=== PATIENT | female | born 1985 | race Caucasian/White ===

== ENCOUNTER 2024-02-12 16:10 | Outpatient (CLI) | payer OTHER, SELFPAY ==
[2024-02-12 16:27] LABS: Hemoglobin 13.7 g/dL (12.0-15.0); Mean Corpuscular HGB Conc 32.6 g/dl (32-36); Mean Corpuscular Hemoglobin 27.9 pg (26-34); Mean Corpuscular Volume 85.5 fl (80-100); Mean Platelet Volume 9.7 fl (7.4-10.4); Platelet Count Result 357 k/mm3 (150-375); Red Blood Count 4.91 M/mm3 (4.2-5.4); Red Cell Distribution Width 13.1 % (11.5-14.5); White Blood Count 10.7 K/mm3 (4.5-10.0)
== END 2024-02-12 16:11 | disposition home or self-care (01) ==
LOC: ANHLAB 16:14
PROVIDERS: Visit Provider Obstetrics & Gynecology
DX: N92.6 Irregular menstruation, unspecified (principal)
CPT/HCPCS: 36415; 85027

== ENCOUNTER 2024-02-25 00:28 | Day surgery (SDC) | payer OTHER, SELFPAY ==
--- NOTE | 2024-02-12 15:32 | SUR.PREOP ---
Report to the Outpatient Waiting Room, entrance under the green pavilion located off [facility], at time _0730_ on date _02/25/2024_. Planned Procedure Time: _0930_.? Time changes happen often and if your time is changed the preop area will call you the afternoon before. - You and your visitor will be asked to self-screen and do not enter if you have any COVID symptoms. Please call surgeon if you need to reschedule. - A mask is optional within the hospital at this time. Patients may have clear liquids (water, carbonated beverages, clear teas, apple juice) until 3 hours prior to surgery (0630) with a maximum of 20 ounces. - No food from midnight until time of surgery and no smoking - Infants may have breast milk until 4 hours before surgery, formula 6 hours prior to surgery. - Children will be allowed to drink immediately following surgery.? If applicable, please bring a bottle or sippy cup to assist with drinking. Juice, water, soda, and popsicles are readily available.? For infants on formula, please bring formula the day of surgery.? Pacifiers are allowed. Take only the following medications with a SIP of water on the morning of surgery: _N/A_ DO NOT STOP ANY OF YOUR OTHER PRESCRIPTION MEDICATIONS PRIOR TO SURGERY EXCEPT THE FOLLOWING Medications to discontinue per physician __NA_ Date to take last dose_NA_ Please no make-up, nail turkish, hairspray, perfume, deodorant, or body powder the day of surgery.? No jewelry (including any body piercings) or valuables the day of surgery, leave them at home.? Please take a shower or bath the night before, or the morning of, surgery with an antibacterial soap.? Wear comfortable, loose fitting clothing.? Children are encouraged to wear pajamas. - Jewelry must be removed prior to entering the operating room.? Rings and piercings that are not removed may be cut off. - The hospital will not accept responsibility for valuables.? - Please leave all valuables, including medications, at home the day of surgery. If you are going home after surgery, a licensed jinrikisha driver must drive you home.? - NO public transportation without another adult if you receive anesthesia. - We recommend that an adult stay with you for 24 hours following discharge. - We also recommend that you do not drive, make important decision, drink alcoholic beverages, or take any drugs that were not prescribed by your health care provider for at least 24 hours after your discharge time. For Pediatric surgeries, we recommend two adults accompany the child home. Follow any additional instructions given to you from your surgeon. Telephone instructions given to _CHILANGO SAUL_and asked if any additional questions and then verbalized understanding. Patient advised to call surgeon office or pre surgery nurse liaison [phone] if any additional questions.
[2024-02-12 15:52] VITALS: BMI 29.9
[2024-02-25 07:06] VITALS: BP 111/72; PULSE 72; TEMP 37.1; O2SAT 99; BMI 31.0
[2024-02-25] MEDS: LACTATED RINGERS 1,000 ML 30 ML IV CONT (07:09)
[2024-02-25] MEDS: ACETAMINOPHEN 500 MG TABLET 1000 MG PO (07:09)
[2024-02-25 07:10] LABS: BEDSIDEPREGUCG Negative (Negative)
--- NOTE | 2024-02-25 07:36 | WPDHPUPDATE1 ---
History and Physical Update Update Date/Time: 02/25/24 07:36 After initial visit ultrasound was performed. Ultrasound confirms small fibroids x3. Also noted is an endometrial thickness of 9 1mm. Also a hyperechoic lesion and fluid in the endometrium as well. Therefore will proceed today with hysteroscopy removal lesion (likely polypectomy) prior to any more definitive surgical intervention for her symptomatology. Plan: 1. Hysteroscopy with uterine curettings/polypectomy/myomectomy. History and Physical has been reviewed, including an updated exam of the patient. There are NO changes in the patient's condition. Risks, benefits, and alternatives have been discussed and questions answered. Patient agrees to proceed with procedure.
--- NOTE | 2024-02-25 07:37 | WPDANESEPPF ---
Anes - Initial Pre Proc Eval Procedure: Operation Date: 02/25/24 08:30 Proposed Procedures p Hysteroscopy Dilation and Curettage with Polypectomy and Myomectomy - Madi Nunes MD Date/Time: 02/25/24 07:37 Surgeon: Madi Nunes MD Pre Op Diagnosis: menometrorrhagia Patient Data Age: 38 Gender: F Height: 1.68 m Weight: 87.3 kg Last Vital Signs Temp 37.1 C 02/25/24 07:06 Pulse 72 02/25/24 07:06 BP 111/72 02/25/24 07:06 Pulse Ox 99 02/25/24 07:06 O2 Del Method Room Air 02/25/24 07:06 Allergies Allergy/AdvReac Type Severity Reaction Status Date / Time chlorhexidine Allergy Hives Verified 02/12/24 15:45 naproxen AdvReac Nausea and Verified 02/12/24 15:45 Vomiting Home Medications Medication Instructions Recorded Confirmed Type No Home Medications 02/02/24 02/12/24 History Laboratory Tests 02/25/24 07:06 POC Urine HCG, Qual Negative (Negative) Patient hx anesthesia problems: none Family hx anesthesia problems: none Results Review: All pre-operative results and documents have been reviewed as part of the pre-operative evaluation. [facility] Past Medical History Medical History (Updated 02/25/24 @ 07:37 by Bradley Mcadams MD) Mild acid reflux Obesity Surgical History Surgical History (Updated 02/02/24 @ 08:05 by Elizabeth Silva [facility]) H/O tubal ligation (03/02/13) History of tonsillectomy (~2000) Hx of cholecystectomy (~2021) Family History Family History Mother Diabetes mellitus Grandparent Lung cancer paternal grandfather H/O ovarian cancer maternal grandmother Social History Social History Smoking status: Never smoker Second hand tobacco smoke exposure: No Alcohol intake: current Alcohol use details: ONCE A MONTH Substance use: never Substance use type: does not use Do You Feel Safe in your Home?: Yes Current Housing: Decline to Answer Concerned About Future Housing: Decline to Answer Difficulty Paying Gas/Electric Bills: Decline to Answer Difficulty Paying for Meds: Decline to Answer Currently Unemployed: Decline to Answer Education: Decline to Answer Difficulty w/ Childcare or Family Care: Decline to Answer Living arrangements: with family Additional living arrangements comments: with and children Occupation/Education: occupation 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 Gender identity (if verbalized by the patient): Female Sexual Orientation (if Verbalized by the Patient): Straight or Heterosexual Spiritual care concerns: No Anes - Eval Final PreProcedure Day of Procedure 02/25/24 07:37 Patient weight: obese Heart: regular rate and rhythm Lungs: clear to auscultation Airway: Mallampati scale class II Neurological: alert and oriented Last oral intake: >/= 8 hours ASA classification: II Emergent: no Anesthetic plan: proceed Anesthesia type and monitoring: general GIVS and standard monitoring Results Review: All pre-operative results and documents have been reviewed as part of the pre-operative evaluation. Informed Consent: The patient's anesthetic plan and its attendant risks and benefits were discussed with the patient/family/POA. Questions were solicited and answers provided to the satisfaction of the patient/family/POA.
--- NOTE | 2024-02-25 09:01 | W.PM.PROC2 ---
Procedure Note - Detailed Date of Procedure 02/25/24 Pre-op Diagnosis 1. Menometrorrhagia 2. Endometrial lesion 3. Uterine fibroids Post-op Diagnosis Same Procedure Performed 1. Hysteroscopy with uterine curettings/shavings Surgeon Madi Nunes MD Anesthesia MAC Findings Endometrial polyp with thickened endometrium Description of Procedure Patient prepped and draped usual manner for this procedure. Cervix was dilated to allow the hysteroscope to be placed. Once this was done polyp was noted and using the shaving instrument the endometrial polyp as well as thorough sampling of the endometrial cavity was undertaken. There was no bleeding and the patient was sent to recovery room in stable condition. Estimated Blood Loss 10 Drains No Packing No Pathology Yes Complications No immediate complications Condition Stable Disposition PACU [facility] Billing Surgery - Charge Forward: Surgery Billing
[2024-02-25 09:06] VITALS: BP 91/47; PULSE 80; RESP 12; O2SAT 98
[2024-02-25 09:30] VITALS: BP 108/63; PULSE 70; RESP 20
[2024-02-25 09:50] VITALS: BP 101/63; PULSE 53; RESP 20
== END 2024-02-25 09:55 | disposition home or self-care (01) ==
PROVIDERS: Visit Provider Obstetrics & Gynecology
PROC: 0U5B8ZZ Destruction of Endometrium, Via Natural or Artificial Opening Endoscopic (ICD-10-PCS; CPT 58563; principal; 2024-02-25 08:30)
DX: R93.89 Abnormal findings on diagnostic imaging of other specified body structures (principal); N84.0 Polyp of corpus uteri; K21.9 Gastro-esophageal reflux disease without esophagitis; E66.9 Obesity, unspecified; Z68.31 Body mass index [BMI] 31.0-31.9, adult; G89.18 Other acute postprocedural pain; Z98.890 Other specified postprocedural states; Z98.51 Tubal ligation status; Z90.49 Acquired absence of other specified parts of digestive tract; Z80.1 Family history of malignant neoplasm of trachea, bronchus and lung; Z80.41 Family history of malignant neoplasm of ovary
CPT/HCPCS: 58558; 88305; A9270; J2003; J2250; J2405; J2704; J3010; J7030; J7120

== ENCOUNTER 2024-04-27 17:12 | Outpatient (CLI) | payer OTHER, SELFPAY ==
[2024-04-27 18:06] LABS: Hematocrit 42.5 % (37.0-47.0); Hemoglobin 14.2 g/dL (12.0-15.0); Mean Corpuscular HGB Conc 33.4 g/dl (32-36); Mean Corpuscular Volume 83.7 fl (80-100); Mean Platelet Volume 9.9 fl (7.4-10.4); Platelet Count Result 383 k/mm3 (150-375); Red Blood Count 5.08 M/mm3 (4.2-5.4); Red Cell Distribution Width 13.3 % (11.5-14.5); White Blood Count 8.6 K/mm3 (4.5-10.0)
== END 2024-04-27 17:13 | disposition home or self-care (01) ==
LOC: ANHLAB 17:13
PROVIDERS: Visit Provider Obstetrics & Gynecology
DX: N92.0 Excessive and frequent menstruation with regular cycle (principal)
CPT/HCPCS: 36415; 85027; 86850; 86900; 86901

== ENCOUNTER 2024-05-05 01:25 | Day surgery (SDC) | payer OTHER, SELFPAY ==
--- NOTE | 2024-04-26 15:45 | PC.NURSE ---
Report to the Outpatient Waiting Room, entrance under the green pavilion located off [facility], at time 0600 on date 05/05/24. Planned Procedure Time: 0730.? Time changes happen often and if your time is changed the preop area will call you the afternoon before. - You and your visitor will be asked to self-screen and do not enter if you have any COVID symptoms. Please call surgeon if you need to reschedule. - A mask is optional within the hospital at this time. Patients may have clear liquids (water, carbonated beverages, clear teas, apple juice) until 3 hours prior to surgery with a maximum of 20 ounces. 0430 - No food from midnight until time of surgery and no smoking. This includes no chewing gum, candy or mints. - Infants may have breast milk until 4 hours before surgery, formula 6 hours prior to surgery. - Children will be allowed to drink immediately following surgery.? If applicable, please bring a bottle or sippy cup to assist with drinking. Juice, water, soda, and popsicles are readily available.? For infants on formula, please bring formula the day of surgery.? Pacifiers are allowed. Take only the following medications with a SIP of water on the morning of surgery: N/A DO NOT STOP ANY OF YOUR OTHER PRESCRIPTION MEDICATIONS PRIOR TO SURGERY EXCEPT THE FOLLOWING Medications to discontinue per physician N/A Date to take last dose N/A Please no make-up, nail yakut, hairspray, perfume, deodorant, or body powder the day of surgery.? No jewelry (including any body piercings) or valuables the day of surgery, leave them at home.? Please take a shower or bath the night before, or the morning of, surgery with an antibacterial soap.? Wear comfortable, loose fitting clothing.? Children are encouraged to wear pajamas. - Jewelry must be removed prior to entering the operating room.? Rings and piercings that are not removed may be cut off. - The hospital will not accept responsibility for valuables.? - Please leave all valuables, including medications, at home the day of surgery. If you are going home after surgery, a licensed motor bus driver must drive you home.? - NO public transportation without another adult if you receive anesthesia. - We recommend that an adult stay with you for 24 hours following discharge. - We also recommend that you do not drive, make important decision, drink alcoholic beverages, or take any drugs that were not prescribed by your health care provider for at least 24 hours after your discharge time. For Pediatric surgeries, we recommend two adults accompany the child home. Follow any additional instructions given to you from your surgeon. Telephone instructions given to Patient- Renee Manning and asked if any additional questions and then verbalized understanding. Patient advised to call surgeon office or pre surgery nurse liaison [phone] if any additional questions.
[2024-04-26 15:52] VITALS: BMI 31.5
--- NOTE | 2024-05-04 13:54 | PM.IMHP ---
H&P: HPI History of Present Illness Date/Time: 05/04/24 13:54 38-year-old female presents for definitive therapy due to complaints of menstrual cycles lasting 5-7 days with 4-5 days heavy with clots and cramps, as well as needed change tampon least hourly during this time also has a longstanding history of abdominal /pelvic pain which has been worsened during this time as well. ultrasound performed which showed mildly enlarged uterus with multiple fibroids. underwent hysteroscopy D&C after ultrasound which revealed benign tissue and endometrial polyp. Bleeding has continued and patient presents for hysterectomy. Chief Complaint: Symptomatic fibroid uterus Review of Systems Review of Systems: All systems reviewed & are unremarkable except as noted in HPI and below PMFSH Past Medical History Medical History Obesity Mild acid reflux Surgical History Surgical History History of hysteroscopy (02/25/24) Hysteroscopy with uterine curettings/shavings Hx of cholecystectomy (~2021) History of tonsillectomy (~2000) H/O tubal ligation (03/02/13) Family History Family History Mother Diabetes mellitus Grandparent Lung cancer paternal grandfather H/O ovarian cancer maternal grandmother Social History Social History Smoking status: Never smoker Second hand tobacco smoke exposure: No Alcohol intake: current Alcohol use details: ONCE A MONTH Substance use: never Substance use type: does not use Do You Feel Safe in your Home?: Yes Current Housing: Decline to Answer Concerned About Future Housing: Decline to Answer Difficulty Paying Gas/Electric Bills: Decline to Answer Difficulty Paying for Meds: Decline to Answer Currently Unemployed: Decline to Answer Education: Decline to Answer Difficulty w/ Childcare or Family Care: Decline to Answer Living arrangements: with family Additional living arrangements comments: with and children Occupation/Education: occupation 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 Gender identity (if verbalized by the patient): Female Sexual Orientation (if Verbalized by the Patient): Straight or Heterosexual Spiritual care concerns: No Meds Home Medications and Allergies Home Medications ?Medication ?Instructions ?Recorded ?Confirmed ?Type No Home Medications 04/26/24 04/26/24 History Allergies Allergy/AdvReac Type Severity Reaction Status Date / Time chlorhexidine Allergy Hives Verified 04/26/24 15:35 naproxen AdvReac Nausea and Verified 04/26/24 15:35 Vomiting Exam Const: General: cooperative and healthy appearing Resp: Effort & Inspection: normal respiratory effort Auscultation: clear to auscultation bilaterally Cardio: Rate: regular rate Rhythm: regular rhythm GI: Inspection: normal to inspection Auscultation: normal bowel sounds : External Female Exam: normal external appearance Speculum Exam - Vagina: normal appearance of the vagina Speculum Exam - Cervix: normal appearance of the cervix Bimanual exam- vagina & uterus: enlarged ( Ten 12 week size) Bimanual Exam- Adnexa, other: normal adnexae Assessment and Plan Assessment and plan (1) Menorrhagia: Code(s): N92.0 - Excessive and frequent menstruation with regular cycle Status: Acute (2) Dysmenorrhea: Code(s): N94.6 - Dysmenorrhea, unspecified Status: Acute (3) Enlarged uterus: Code(s): N85.2 - Hypertrophy of uterus Status: Acute Plan proceed with a robotic assisted laparoscopic hysterectomy with salpingectomy//ovarian preservation.
[2024-05-05] VITALS (9 sets, daily range): BP systolic 93–140; BP diastolic 52–93; PULSE 57–88; RESP 12–20; TEMP 36.3–36.9; O2SAT 96–100
--- NOTE | 2024-05-05 06:43 | P.PNAN_ITS ---
Anes - Initial Pre Proc Eval Procedure: Operation Date: 05/05/24 07:30 Proposed Procedures p Robotic Assisted Total Laparoscopic Hysterectomy with Bilateral Salpingectomy - Madi Nunes MD Date/Time: 05/05/24 06:43 Surgeon: Madi Nunes MD Pre Op Diagnosis: menorrhagia Patient Data Age: 38 Gender: F Height: 1.68 m Weight: 88.6 kg Allergies Allergy/AdvReac Type Severity Reaction Status Date / Time chlorhexidine Allergy Hives Verified 04/26/24 15:35 naproxen AdvReac Nausea and Verified 04/26/24 15:35 Vomiting Home Medications ?Medication ?Instructions ?Recorded ?Confirmed ?Type No Home Medications 04/26/24 04/26/24 History Patient hx anesthesia problems: none Family hx anesthesia problems: none Results Review: All pre-operative results and documents have been reviewed as part of the pre- operative evaluation. [facility] Past Medical History Medical History Obesity Mild acid reflux Surgical History Surgical History History of hysteroscopy (02/25/24) Hysteroscopy with uterine curettings/shavings Hx of cholecystectomy (~2021) History of tonsillectomy (~2000) H/O tubal ligation (03/02/13) Family History Family History Mother Diabetes mellitus Grandparent Lung cancer paternal grandfather H/O ovarian cancer maternal grandmother Social History Social History Smoking status: Never smoker Second hand tobacco smoke exposure: No Alcohol intake: current Alcohol use details: ONCE A MONTH Substance use: never Substance use type: does not use Do You Feel Safe in your Home?: Yes Current Housing: Decline to Answer Concerned About Future Housing: Decline to Answer Difficulty Paying Gas/Electric Bills: Decline to Answer Difficulty Paying for Meds: Decline to Answer Currently Unemployed: Decline to Answer Education: Decline to Answer Difficulty w/ Childcare or Family Care: Decline to Answer Living arrangements: with family Additional living arrangements comments: with and children Occupation/Education: occupation 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 Gender identity (if verbalized by the patient): Female Sexual Orientation (if Verbalized by the Patient): Straight or Heterosexual Spiritual care concerns: No Anes - Eval Final PreProcedure Day of Procedure 05/05/24 06:43 Patient weight: obese Heart: regular rate and rhythm Lungs: clear to auscultation Airway: Mallampati scale class II Neurological: alert and oriented Last oral intake: >/= 8 hours ASA classification: II Emergent: no Anesthetic plan: proceed Anesthesia type and monitoring: general GIVS and standard monitoring Results Review: All pre-operative results and documents have been reviewed as part of the pre- operative evaluation. Informed Consent: The patient's anesthetic plan and its attendant risks and benefits were discussed with the patient/family/POA. Questions were solicited and answers provided to the satisfaction of the patient/family/POA.
[2024-05-05] MEDS: ACETAMINOPHEN 500 MG TABLET 1000 MG PO ×2 (06:45→17:44)
[2024-05-05] MEDS: KETOROLAC 15 MG/ML VIAL (*BKC) IV PUSH (06:45)
[2024-05-05] MEDS: LACTATED RINGERS 1,000 ML 30 ML IV CONT ×2 (07:00→09:12)
[2024-05-05] MEDS: SCOPOLAMINE 1 MG PATCH 1 PATCH TRANSDERM (07:00)
[2024-05-05 07:01] LABS: BEDSIDEPREGUCG Negative (Negative)
--- NOTE | 2024-05-05 07:22 | WPDHPUPDATE1 ---
History and Physical Update Update Date/Time: 05/05/24 07:22 History and Physical has been reviewed, including an updated exam of the patient. There are NO changes in the patient's condition. Risks, benefits, and alternatives have been discussed and questions answered. Patient agrees to proceed with procedure.
[2024-05-05] MEDS: ceFAZolin 2 GM/D5W 50 ML 2 GM/50 ML BAG IVPB (07:25)
--- NOTE | 2024-05-05 08:58 | W.PM.PROC2 ---
Procedure Note - Detailed Date of Procedure 05/05/24 Pre-op Diagnosis 1. Menometrorrhagia 2. Dysmenorrhea 3. enlarged uterus Post-op Diagnosis Same Procedure Performed Robotic assisted total laparoscopic hysterectomy with bilateral salpingectomy Removal of Filshie clips Surgeon Madi Nunes MD Anesthesia General Findings 1. Enlarged bulky uterus 2. Ovaries without abnormality 3. Filshie clips in posterior cul-de-sac Description of Procedure Patient prepped and draped usual manner for this procedure. Cervical instruments were placed for mobility throughout the case. Abdominal trocar sites were marked and placed under direct visualization. Trocars were then attached to the [employer] system and instruments were placed without difficulty. You findings were noted as above in the mesial salpinx was cauterized and cut bilaterally and tubes removed without difficulty. Filshie clips were noted at this point the left posterior cul-de-sac and removed without difficulty. Round ligaments cauterized and cold cut bilaterally and bladder flap was developed difficulty. Posterior leaf the broad ligament was also incised to skeletonize the uterine vessels. Prior to this the uterine ovarian ligaments were cauterized and cut to drop the ovaries out of the operative field. Uterine vessels were then cauterized and cut bilaterally without difficulty and vascularity to the uterus was removed at this point. Anterior cul-de-sac incision was made and this was carried circumferentially to separate the cervix from the vagina, and the uterus was delivered into the vagina. Vaginal cuff was then closed using V lock suture from the right angle to the midline and then from the left angle past the midline with good approximation hemostasis noted. Irrigation was then undertaken with no bleeding noted. Hematoma was placed over all the raw edges empirically and at this point the procedure was considered terminated. Gas was allowed to escape, trocars removed, trocar sites were approximated using 4-0 Monocryl. Patient was then taken the recovery room in stable condition. Estimated Blood Loss 100 Drains No Packing No Pathology Yes Complications No immediate complications Condition Stable Disposition PACU [facility] Billing Surgery - Charge Forward: Surgery Billing
[2024-05-05] MEDS: fentaNYL CITRATE INJ (*CRX) 100 MCG/2 ML VIAL 25 MCG IV PUSH ×4 (09:30→09:52)
--- NOTE | 2024-05-05 10:43 | PC.NURSE ---
This patient, Renee Manning, was received from PACU via bed on 05/05/24 at 1018. Patient/family oriented to unit policies and routines.
[2024-05-05] MEDS: oxyCODONE HCL (*CRX) 5 MG TAB IR PO (10:54)
[2024-05-05] MEDS: ONDANSETRON INJ 4 MG/2 ML VIAL IV PUSH ×2 (10:54→17:45)
[2024-05-05] MEDS: DEXTROSE 5%/0.45% SOD CHL 1,000 ML 125 ML IV CONT (10:55)
[2024-05-05] MEDS: SIMETHICONE 80 MG TAB.CHEW PO ×2 (10:55→17:44)
[2024-05-05] MEDS: DOCUSATE SODIUM 100 MG CAPSULE PO (17:44)
[2024-05-05] MEDS: KETOROLAC 30 MG/ML VIAL (*BKC) IV PUSH (17:45)
[2024-05-06 00:45] VITALS: BP 102/64; PULSE 70; RESP 14; TEMP 36.8; O2SAT 100
[2024-05-06 05:40] VITALS: BP 101/64; PULSE 67; RESP 16; TEMP 36.7; O2SAT 100
[2024-05-06] MEDS: ACETAMINOPHEN 500 MG TABLET 1000 MG PO (05:53)
[2024-05-06] MEDS: IBUPROFEN 600 MG TABLET PO (05:54)
[2024-05-06 06:43] LABS: Basophils Percent Auto 0.2 % (0.2-1.2); Eosinophils Percent Auto 0.2 % (0-4.4); Hematocrit 36.2 % (37.0-47.0); Hemoglobin 11.6 g/dL (12.0-15.0); Immature Granulocyte Absolute 0.03 K/mm3 (0.00-0.031); Immature Granulocyte Percent A 0.2 % (0-0.5); Lymphocytes Absolute Auto 3.52 K/mm3 (0.9-3.2); Lymphocytes Percent Auto 28.4 % (18.3-44.2); Mean Corpuscular Hemoglobin 27.8 pg (26-34); Mean Corpuscular Volume 86.8 fl (80-100); Mean Platelet Volume 9.9 fl (7.4-10.4); Monocytes Absolute Auto 0.9 K/mm3 (0.1-0.6); Monocytes Percent Auto 7.1 % (2.6-8.5); Neutrophils Absolute Auto 7.9 K/mm3 (1.3-6.7); Neutrophils Percent Auto 63.9 % (45.5-73.1); Platelet Count Result 277 k/mm3 (150-375); Red Blood Count 4.17 M/mm3 (4.2-5.4); Red Cell Distribution Width 13.2 % (11.5-14.5); White Blood Count 12.4 K/mm3 (4.5-10.0)
[2024-05-06] MEDS: DOCUSATE SODIUM 100 MG CAPSULE PO (07:05)
[2024-05-06] MEDS: SIMETHICONE 80 MG TAB.CHEW PO (07:05)
[2024-05-06 07:35] VITALS: BP 106/52; PULSE 65; RESP 16; TEMP 36.8; O2SAT 100
== END 2024-05-06 10:09 | disposition home or self-care (01) ==
LOC: ANHSURGERY 05:50 → ANHOB2 18:09
PROVIDERS: Visit Provider Obstetrics & Gynecology
PROC: (CPT 58571; principal; 2024-05-05 07:30)
DX: N88.8 Other specified noninflammatory disorders of cervix uteri (principal); D25.1 Intramural leiomyoma of uterus; D26.1 Other benign neoplasm of corpus uteri; G89.18 Other acute postprocedural pain; K21.9 Gastro-esophageal reflux disease without esophagitis; E66.9 Obesity, unspecified; Z68.31 Body mass index [BMI] 31.0-31.9, adult; Z98.890 Other specified postprocedural states; Z90.49 Acquired absence of other specified parts of digestive tract; Z98.51 Tubal ligation status; Z80.1 Family history of malignant neoplasm of trachea, bronchus and lung; Z80.41 Family history of malignant neoplasm of ovary
CPT/HCPCS: 58571; S2900; 36415; 85025; 88307; 99199; A9270; J0690; J1100; J1171; J1885; J2003; J2250; J2405; J2704; J3010; J7120

== ENCOUNTER 2024-05-07 19:42 | Emergency (ER) | payer OTHER, SELFPAY ==
--- NOTE | ~2024-05-07 | CT_ITS ---
EXAMINATION: CT abdomen pelvis w con DATE: 05/07/2024 21:02 INDICATION: Postoperative abdominal pain TECHNIQUE: Computed tomography (CT) of the abdomen and pelvis was performed with 100 CC Omnipaque 350 intravenous contrast. Automated exposure control and iterative reconstruction technique were employe d. Exam dose: 718.70 mGy-cm total exam DLP. COMPARISON: None. FINDINGS: Right lower lobe calcified pulmonary granuloma. The lung bases are clear of infiltrate or c onsolidation. Normal heart size. No pericardial or pleural effusion. Status post cholecystectomy. No hepatic, splenic, pancreatic, adrenal or renal space-occupying mass l esion. No bile duct or pancreatic duct dilatation. No urinary tract calculus or hydroureteronephrosis. Normal caliber of the abdominal aorta. No intraperitoneal or retroperitoneal or pelvic mass lesion or adenopathy. Normal appendix. No bowel obstruction, bowel wall thickening or pneumatosis. 2.5 cm left ovarian cyst. There is minimal focal lower anterior ventral abdominal wall subcutaneous emphysema, mild free fluid in the lower pelvis and a small amount of intraperitoneal free air is demonstrated over the anterior aspect of the liver, which may be postoperative findings. There is no contrast material within the ur inary bladder, preventing assessment for possible bladder leak. Included skeletal structures are unremarkable. IMPRESSION: Mild fluid in the pelvic area and mild intraperitoneal free air, possibly postoperative findings If there is any concern for bladder leak, consider cystogram. Reviewed, dictated and finalized at [facility] Reviewed, dictated and finalized at [facility] IMPRESSION: Mild fluid in the pelvic area and mild intraperitoneal free air, p ossibly postoperative findings If there is any concern for bladder leak, consider cystogram.
[2024-05-07 19:51] VITALS: BP 129/69; PULSE 100; RESP 15; TEMP 36.6; O2SAT 98
[2024-05-07] MEDS: SODIUM CHLORIDE 0.9% IV 1,000 ML 999 ML IV CONT ×2 (20:29→20:50)
--- NOTE | 2024-05-07 20:32 | ED_ITS ---
HPI - General Adult General Chief complaint: Fever Stated complaint: fevers/ pain/ post hysterectomy Time Seen by Provider: 05/07/24 19:58 History of Present Illness HPI narrative: A 38-year-old female presents to the emergency department for evaluation for abdominal pain. Patient did have a hysterectomy done on Thursday. Patient states she has not had a bowel movement since before surgery. Patient is complaining of increased abdominal bloating and did have a fever at home. Patient is afebrile upon arrival to the emergency department. Patient is uncomfortable appearing. Hysterectomy was performed by Dr. Nunes Related Data Allergies Allergy/AdvReac Type Severity Reaction Status Date / Time chlorhexidine Allergy Hives Verified 05/07/24 19:43 naproxen AdvReac Nausea and Verified 05/07/24 19:43 Vomiting Review of Systems 2 Review of Systems: All systems reviewed & are unremarkable except as noted in HPI and below PMFSH Past Medical History Medical History Obesity Mild acid reflux Surgical History Surgical History History of hysteroscopy (02/25/24) Hysteroscopy with uterine curettings/shavings Hx of cholecystectomy (~2021) History of tonsillectomy (~2000) H/O tubal ligation (03/02/13) Family History Family History Mother Diabetes mellitus Grandparent Lung cancer paternal grandfather H/O ovarian cancer maternal grandmother Social History Social History Smoking status: Never smoker Second hand tobacco smoke exposure: No Alcohol intake: current Alcohol use details: ONCE A MONTH Substance use: never Substance use type: does not use Do You Feel Safe in your Home?: Yes Current Housing: Decline to Answer Concerned About Future Housing: Decline to Answer Difficulty Paying Gas/Electric Bills: Decline to Answer Difficulty Paying for Meds: Decline to Answer Currently Unemployed: Decline to Answer Education: Decline to Answer Difficulty w/ Childcare or Family Care: Decline to Answer Living arrangements: with family Additional living arrangements comments: with and children Occupation/Education: occupation 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 HEAD: normocephalic, atraumatic. EYES: PERRLA/EOMI, conjunctivae clear. NOSE: Normal no drainage EARS:TMS clear with good light reflex. THROAT: Pharynx clear, no exudate. NECK: Supple. No adenopathy, no masses. RESPIRATORY: Airway patent, respirations nonlabored. Clear to auscultation bilaterally, no rales, rhonchi, wheezing. CARDIOVASCULAR: Regular rate and rhythm without murmurs rubs or gallops. ABDOMINAL: Well-appearing surgical incisions, diffuse abdominal tenderness to palpation MUSCULOSKELETAL: Moves all extremities. Strength/ROM intact, No edema, No calf tenderness. NEURO: Alert. Cranial nerves II through XII intact. Grossly intact SKIN: Warm, dry. Normal Color Course Vital Signs Vital signs: Vital Signs Temperature 97.9 F 05/07/24 19:51 Pulse Rate 100 05/07/24 19:51 Respiratory Rate 15 05/07/24 19:51 Blood Pressure 129/69 05/07/24 19:51 Pulse Oximetry 98 05/07/24 19:51 Oxygen Delivery Room Air 05/07/24 19:51 Temperature 97.9 F 05/07/24 19:51 Pulse Rate 66 05/07/24 23:05 Respiratory Rate 15 05/07/24 23:05 Blood Pressure 114/86 05/07/24 23:05 Pulse Oximetry 100 05/07/24 23:05 Oxygen Delivery Room Air 05/07/24 19:51 Medical Decision Making [facility] Narrative Medical decision making narrative: 38-year-old female presents to the emergency department for evaluation for post op bloating and constipation. Patient is afebrile but does have a leukocytosis of 12.5 and a stable hemoglobin of 12.0. INR is 1.0. No acute abnormalities on the CMP UA shows no significant abnormalities CT scan did show some trace air and fluid in the abdomen which is expected for postop. Patient did feel improved with treatment. Patient family are updated on the plan for treatment at home and increase the MiraLax dosing. Questions concerns were addressed patient was well-appearing of discharged Differential Diagnosis Differential Diagnosis: Bowel perforation bowel obstruction, colitis, diverticulitis, bladder perforation, UTI Vital Signs Vital Signs: Vital Signs Temperature 97.9 F 05/07/24 19:51 Pulse Rate 100 05/07/24 19:51 Respiratory Rate 15 05/07/24 19:51 Blood Pressure 129/69 05/07/24 19:51 Pulse Oximetry 98 05/07/24 19:51 Oxygen Delivery Room Air 05/07/24 19:51 Temperature 97.9 F 05/07/24 19:51 Pulse Rate 66 05/07/24 23:05 Respiratory Rate 15 05/07/24 23:05 Blood Pressure 114/86 05/07/24 23:05 Pulse Oximetry 100 05/07/24 23:05 Oxygen Delivery Room Air 05/07/24 19:51 Lab Data Lab results reviewed: Yes I reviewed the patient's lab results. 05/07/24 20:28 05/07/24 20:28 Labs: Lab Results 05/07/24 Range/Units 20:28 WBC 12.5 H (4.5-10.0) K/mm3 RBC 4.35 (4.2-5.4) M/mm3 Hgb 12.0 (12.0-15.0) g/dL Hct 36.3 L (37.0-47.0) % MCV 83.4 (80-100) fl MCH 27.6 (26-34) pg MCHC 33.1 (32-36) g/dl RDW 12.9 (11.5-14.5) % Plt Count 318 (150-375) k/mm3 MPV 10.0 (7.4-10.4) fl Immature Gran % (Auto) 0.6 H (0-0.5) % Neut % (Auto) 72.1 (45.5-73.1) % Lymph % (Auto) 17.8 L (18.3-44.2) % [place] % (Auto) 8.1 (2.6-8.5) % Eos % (Auto) 1.1 (0-4.4) % Baso % (Auto) 0.3 (0.2-1.2) % Lymph # (Auto) 2.22 (0.9-3.2) K/mm3 [place] # (Auto) 1.0 H (0.1-0.6) K/mm3 Eos # (Auto) 0.1 (0-0.3) K/mm3 Baso # (Auto) 0.0 (0.0-0.1) K/mm3 Abs Immat Gran (auto) 0.07 H (0.00-0.031) K/mm3 Absolute Neuts (auto) 9.0 H (1.3-6.7) K/mm3 Absolute Nucleated RBC 0.000 (0.0-0.012) K/mm3 Nucleated RBC % 0.0 (0.0-0.2) % PT 14.0 (11.1-14.7) Seconds INR 1.0 APTT 28.3 (22.3-36.8) Seconds Sodium 134 L (137-145) mmol/L Potassium 3.4 (3.4-5.0) mmol/L Chloride 103 (98-107) mmol/L Carbon Dioxide 27 (22-30) mmol/L Anion Gap 4 (4-12) mmol/L BUN 4 L (7-17) mg/dL Creatinine 0.70 (0.7-1.0) mg/dL Estim Creat Clear Calc 106 ml/min Estimated GFR > 60 (59 - ) Glucose 115 H (65-110) mg/dL Lactic Acid 0.7 (0.7-2.0) mmol/L Calcium 8.4 (8.4-10.2) mg/dL Total Bilirubin 0.9 (0.2-1.3) mg/dL AST 30 (14-36) U/L ALT 32 (6-35) U/L Alkaline Phosphatase 58 (38-126) U/L Total Protein 7.0 (6.3-8.2) g/dL Albumin 3.6 (3.5-5.1) g/dL Lipase 29 (23-300) U/L Urine Color Yellow (Yellow) Urine Appearance Clear (Clear) Urine pH 7.0 (5.0-9.0) Ur Specific [place] 1.012 (1.001-1.035) Urine Protein Negative (Negative) mg/dL Urine Glucose (UA) Negative (Negative) mg/dL Urine Ketones 1+ H (Negative) mg/dL Ur Blood (Man) Non-hemolyzed trace H (Negative) Urine Nitrate Negative (Negative) Urine Bilirubin Negative (Negative) Urine Urobilinogen 2.0 H (<2.0) mg/dL Leukocyte Esterase Rfl Trace H (Negative) ALESSIO/UL Urine RBC 0-2 (0-2) /hpf Urine WBC 0-5 (0-3) /hpf Ur Squamous Epith Cells Few (Few) /hpf Urine Bacteria None seen /hpf Urine Casts 0-2 Imaging Data Radiologist's impression: Impressions Abdomen/Pelvis CT 05/07/24 21:09 IMPRESSION: Mild fluid in the pelvic area and mild intraperitoneal free air, possibly postoperative findings If there is any concern for bladder leak, consider cystogram. Discharge Plan Discharge Clinical Impression: Constipation, Post-op pain Patient Disposition: Home, Self-Care Condition: Stable Instructions: Antibiotic Form, Constipation (DC) Additional Instructions: Continue to have close follow-up with OB Gy[facility]. Drink plenty of fluids. Increase your MiraLax dosing to help with constipation. If you have any worsening symptoms then please call or return to the emergency department. Patient Language: Sinhala Prescriptions: No Action ibuprofen 600 mg Tablet 600 mg PO Q6HR Qty: 30 0RF oxycodone 5 mg Tablet 5 mg PO Q4H PRN (Reason: Pain Rated 4-6) Qty: 20 0RF Follow-up/Referrals: PHYSICIAN,[facility] COMBER [Non-Staff] -
[2024-05-07 20:38] LABS: Basophils Percent Auto 0.3 % (0.2-1.2); Eosinophils Absolute Auto 0.1 K/mm3 (0-0.3); Eosinophils Percent Auto 1.1 % (0-4.4); Hematocrit 36.3 % (37.0-47.0); Immature Granulocyte Absolute 0.07 K/mm3 (0.00-0.031); Immature Granulocyte Percent A 0.6 % (0-0.5); Lymphocytes Absolute Auto 2.22 K/mm3 (0.9-3.2); Lymphocytes Percent Auto 17.8 % (18.3-44.2); Mean Corpuscular HGB Conc 33.1 g/dl (32-36); Mean Corpuscular Hemoglobin 27.6 pg (26-34); Mean Corpuscular Volume 83.4 fl (80-100); Monocytes Percent Auto 8.1 % (2.6-8.5); Neutrophils Percent Auto 72.1 % (45.5-73.1); Platelet Count Result 318 k/mm3 (150-375); Red Blood Count 4.35 M/mm3 (4.2-5.4); Red Cell Distribution Width 12.9 % (11.5-14.5); White Blood Count 12.5 K/mm3 (4.5-10.0)
[2024-05-07 20:42] LABS: Add Urine Microscopic? YES; Appearance Urine Clear (Clear); Bacteria Urine None Seen /hpf; Bilirubin Urine Negative (Negative); Blood Urine Non-Hemolyzed Trace (Negative); Color Urine Yellow (Yellow); Glucose Urine UA Negative (Negative); Ketones Urine 1+ mg/dL (Negative); Leukocyte Esterase Ur Trace LEU/UL (Negative); Nitrate Urine Negative (Negative); Non Pathogenic Casts 0-2; Protein Urine Negative (Negative); RBC Urine 0-2 /hpf (0-2); Specific Grav Ur 1.012 (1.001-1.035); Squamous Epithelial Cell Urine Few /hpf (Few); WBC Urine 0-5 /hpf (0-3)
[2024-05-07 20:46] LABS: Alanine Aminotransferase 32 U/L (6-35); Albumin Level 3.6 g/dL (3.5-5.1); Alkaline Phosphatase 58 U/L (38-126); Anion Gap 4 mmol/L (4-12); Aspartate Amino Transferase 30 U/L (14-36); Bilirubin,Total 0.9 mg/dL (0.2-1.3); Blood Urea Nitrogen 4 mg/dL (7-17); Calcium 8.4 mg/dL (8.4-10.2); Carbon Dioxide 27 mmol/L (22-30); Chloride 103 mmol/L (98-107); Estimated CRCL calculation 106 ml/min; Estimated Glomerular Filt Rate > 60; Glucose 115 mg/dL (65-110); Lipase 29 U/L (23-300); Potassium 3.4 mmol/L (3.4-5.0); Sodium 134 mmol/L (137-145)
[2024-05-07 20:47] LABS: Lactic Acid Reflex 0.7 mmol/L (0.7-2.0)
[2024-05-07 20:49] LABS: Partial Thromboplastin Time 28.3 Seconds (22.3-36.8)
[2024-05-07] MEDS: ONDANSETRON INJ 4 MG/2 ML VIAL IV PUSH (20:50)
[2024-05-07] MEDS: HYDROmorphone HCL INJ (*CRX) 1 MG/ML SYR 0.5 MG IV PUSH (20:51)
[2024-05-07 20:52] VITALS: BP 110/64; PULSE 73; RESP 15; O2SAT 97
[2024-05-07 23:05] VITALS: BP 114/86; PULSE 66; RESP 15; O2SAT 100
== END 2024-05-07 23:05 | disposition home or self-care (01) ==
PROVIDERS: Emergency Provider Emergency Medicine
DX: G89.18 Other acute postprocedural pain (principal); R10.9 Unspecified abdominal pain; K59.00 Constipation, unspecified; Z90.710 Acquired absence of both cervix and uterus; E66.9 Obesity, unspecified; Z68.33 Body mass index [BMI] 33.0-33.9, adult; K21.9 Gastro-esophageal reflux disease without esophagitis; Z90.49 Acquired absence of other specified parts of digestive tract
CPT/HCPCS: 36415; 74177; 80053; 81001; 83605; 83690; 85025; 85610; 85730; 96361; 96374; 96375; 99284; J1171; J2405; J7030; Q9967